=== PATIENT | male | born 1965 | race Caucasian/White ===

== ENCOUNTER 2018-08-08 15:48 | Emergency (ER) | payer MEDICARE, OTHER ==
[~2018-08-08] VITALS: Ht 185.4 cm; Wt 100.0 kg
[~2018-08-08 15:48] MED LIST: ATOR80TA PO; CLON-527 PO; CLON-529 PO; DULO-31 PO; GABA-532 PO; METF500T PO; azmacort INH
[2018-08-08 16:04] LABS: BASOPHILS # (AUTO) 0.1 X10'3 (0-0.2); BASOPHILS % (AUTO) 1.2 % (0-1); EOSINOPHILS # (AUTO) 0.1 X10'3 (0-0.9); EOSINOPHILS % (AUTO) 1.2 % (0-6); HEMATOCRIT 41.8 % (42.0-52.0); HEMOGLOBIN 14.1 g/dl (14.0-17.9); LYMPHOCYTES # (AUTO) 2.1 X10'3 (1.1-4.8); LYMPHOCYTES % (AUTO) 27.1 % (21-51); MEAN CORPUSCULAR HEMOGLOBIN 30.6 PG (27.0-31.0); MEAN CORPUSCULAR HGB CONC 33.8 % (33.0-36.5); MEAN CORPUSCULAR VOLUME 90.4 FL (78-98); MEAN PLATELET VOLUME 9.2 FL (7.4-10.4); MONOCYTES # (AUTO) 0.3 X10'3 (0-0.9); MONOCYTES % (AUTO) 3.8 % (2-12); NEUTROPHILS # (AUTO) 5.1 X10'3 (1.8-7.7); NEUTROPHILS % (AUTO) 66.7 % (42-75); PLATELET COUNT 283 X10'3 (140-440); RED BLOOD COUNT 4.62 X10'6 (4.70-6.10); RED CELL DISTRIBUTION WIDTH 13.8 % (11.5-14.5); WHITE BLOOD COUNT 7.6 X10'3 (4.5-11.0)
[2018-08-08 16:17] LABS: ALANINE AMINOTRANSFERASE 25 U/L (12-78); ALBUMIN/GLOBULIN RATIO 0.9 (1.1-1.5); ALKALINE PHOSPHATASE 110 IU/L (46-116); ANION GAP 11 (8-16); ASPARTATE AMINO TRANSFERASE 17 U/L (10-37); BILIRUBIN,TOTAL 0.2 MG/DL (0.1-1.0); BLOOD UREA NITROGEN 11 MG/DL (7-18); BUN/CREATININE RATIO 9.3 (5.4-32.0); CALCIUM 8.2 MG/DL (8.5-10.1); CHLORIDE 105 MMOL/L (99-107); CREATININE 1.18 MG/DL (0.60-1.10); ETHANOL 0.241 GM/DL (0.0-0.010); GLUCOSE 103 MG/DL (70-104); POTASSIUM 3.5 MMOL/L (3.5-5.1); SODIUM 140 MMOL/L (135-145); TOTAL CARBON DIOXIDE 23.6 MMOL/L (24-32); TOTAL PROTEIN 6.3 G/DL (6.4-8.2); eGFR 64 ML/MIN
[2018-08-08 16:18] LABS: INR 0.9 INR; PARTIAL THROMBOPLASTIN TIME 25 SECONDS (22-32); PROTHROMBIN TIME 9.7 SECONDS (9.0-12.0)
[2018-08-08 16:54] LABS: CLARITY,URINE CLEAR (Clear); COLOR,URINE YELLOW (Yellow); GLUCOSE, URINE NEGATIVE (Neg); KETONES,URINE NEGATIVE (Neg); LEUKOCYTE ESTERASE ,URINE NEGATIVE (Neg); NITRITES, URINE NEGATIVE (Neg); OCCULT BLOOD,URINE NEGATIVE (Neg); PROTEIN,URINE NEGATIVE (Neg); UROBILINOGEN,URINE 0.2 E.U/dL (0.2-1.0)
[2018-08-08 16:55] LABS: UA COLLECTION TYPE NON-SPECIFIED
[2018-08-08 17:06] LABS: URINE AMPHETAMINE SCREEN POSITIVE (Neg); URINE BARBITUATE SCREEN NEGATIVE (Neg); URINE BENZODIAZEPINES SCREEN POSITIVE (Neg); URINE CANNABINOID SCREEN NEGATIVE (Neg); URINE COCAINE SCREEN NEGATIVE (Neg); URINE METHADONE SCREEN NEGATIVE (Neg); URINE OPIATE SCREEN NEGATIVE (Neg); URINE PHENCYCLIDINE SCREEN NEGATIVE (Neg)
[2018-08-08] MEDS ORDERED: normal saline 1000ML IV soln IVB ONE (17:20)
[2018-08-08 20:22] VITALS: BP 92/52
== END 2018-08-08 21:33 | disposition home or self-care (01) ==
LOC: ER 15:49 → ED HOLD 16:47 → UNDOADMOB 16:47 → ER 21:33
DX: F10.129 Alcohol abuse with intoxication, unspecified (principal); E78.00 Pure hypercholesterolemia, unspecified; I10 Essential (primary) hypertension; J44.9 Chronic obstructive pulmonary disease, unspecified; E11.9 Type 2 diabetes mellitus without complications; G89.29 Other chronic pain; Y90.9 Presence of alcohol in blood, level not specified; Z79.84 Long term (current) use of oral hypoglycemic drugs; Z79.899 Other long term (current) drug therapy
CPT/HCPCS: 36415; 70450; 71045; 80053; 80305; 80320; 81003; 85025; 85610; 85730; 93005; 96360; 99285; A4353; J7030

== ENCOUNTER 2018-08-25 11:42 | Emergency (ER) | payer MEDICARE, OTHER ==
[~2018-08-25] VITALS: Ht 175.3 cm; Wt 100.0 kg
[2018-08-25 11:45] VITALS: BP 115/74
== END 2018-08-25 12:59 | disposition left against medical advice (07) ==
LOC: ER 11:43
DX: F10.129 Alcohol abuse with intoxication, unspecified (principal); Z53.21 Procedure and treatment not carried out due to patient leaving prior to being seen by health care provider; Y90.9 Presence of alcohol in blood, level not specified

== ENCOUNTER 2025-06-11 15:54 | Emergency (ER) | payer OTHER, BC ==
[~2025-06-11] VITALS: Ht 175.3 cm; Wt 127.1 kg
[~2025-06-11 15:54] MED LIST changes: +ATOR-429 PO; -ATOR80TA PO
--- NOTE | 2025-06-11 16:07 | ELECTROCARDIOGRAPH REPORT ---
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 Brian Bansal Measurements Intervals [place] Rate: 110 P: 66 PA: 189 QRS: 51 QRSD: 124 T: 19 QT: 329 QTc: 446 Interpretive Statements Sinus tachycardia Right bundle branch block Electronically Signed On 06-11-2025 19:43:[address] Brian Bansal Please click the below link to view image of tracing.
--- NOTE | 2025-06-11 16:26 | RADIOLOGY REPORT ---
CHEST RADIOGRAPH Indication: CP Technique: Single frontal view of the chest was obtained Comparison: None FINDINGS: Lines and Tubes: None Lungs: No focal consolidation. Pleura: No effusion. No pneumothorax. Cardiomediastinal contours: Unremarkable Bones: No acute osseous abnormality. IMPRESSION: No acute cardiopulmonary disease.
[2025-06-11 16:37] LABS: MEAN PLATELET VOLUME 9.8 FL (7.4-10.4); RED CELL DISTRIBUTION WIDTH 14.4 % (11.5-14.5)
[2025-06-11 16:55] LABS: CREATININE 1.00 MG/DL (0.60-1.10); PRO BRAIN NATRIURETIC PEPTIDE 89 PG/ML (0-125); TOTAL CARBON DIOXIDE 29.1 MMOL/L (24-32); eCRCL 77 ML/MIN; eGFR 76 ML/MIN
--- NOTE | 2025-06-11 23:41 | Physician Documentation ---
History of Present Illness ~ Chief Complaint: Extremity Swelling Stated Complaint: SWELLING IN LEGS AND HANDS Time Seen by MD: 23:36 OK to notify your PCP?: Yes [facility] Doctor: [facility] Source: patient, RN/MD, RN notes reviewed Mode of Arrival: POV Exam Limitations: no limitations, other HPI 60 year old male seen in bed one presents to the emergency department for complaints of swelling that has been present for a month. Patient states that both of his legs are swelling and are causing him pain. He states he is immobile. Patient states the only mediation he takes is clonidine which he takes as needed. 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 Tetanus witin 5 years: No Medication Reconciliation Allergies: Coded Allergies: No Known Allergies (Unverified , 06/11/25) Scheduled Atorvastatin Calcium* (Lipitor*), 40 MG PO HS, (Reported) Clonazepam* (Klonopin*), 1 MG PO QID, (Reported) Duloxetine Hcl* (Cymbalta*), 60 MG PO DAILY, (Reported) Gabapentin (Gabapentin), 3 CAP PO TID Metformin Hcl* (Glucophage*), 1 TAB PO DAILY, (Reported) [azmacort], 2 PUFFS INH DAILY, (Reported) Scheduled PRN Clonidine Hcl* (Catapres*), 0.1 MG PO TID PRN for anxiety Past Medical History Past Medical History: High Cholesterol, Hypertension, COPD, Diabetes, Chronic Pain, Chronic Back Pain, Anxiety, Depression Past Surgical History: no surgical history Alcohol Use: None Lives with: Family Lives In: Home Occupation: disabled Review of Systems All Other Systems at this time: Reviewed and Negative ROS As stated above in the HPI, otherwise all systems are reviewed and negative. Physical Exam Vital Signs: RN Vital Signs have been reviewed: Yes, Temperature: 97.8, Source: Temporal, Heart Rate: 91, Respiratory Rate: 18, BP: 130/94, Pulse Oximetry: 99, Weight: 127.100 Pulse Oximetry Reflects: adequate oxygenation Physical Exam General: The patient is well developed, well nourished, nontoxic appearing and is in no acute distress. Skin: [place], warm and dry with no rashes. HEENT: Head was normocephalic and atraumatic. Eyes - pupils equal, round, reactive to light and accommodation. Extraocular movements were intact. Conjunctivae were nonicteric. Ears - bilateral tympanic membranes were normal. The mouth and oropharynx were clear with moist mucous membranes. There were no pharyngeal exudates or erythema. Neck: Supple and nontender. There was no jugular venous distention, lymphadenopathy, thyromegaly or masses. Chest: Clear to auscultation bilaterally without wheezes, rales or rhonchi. No accessory muscle use. No dullness to percussion. Heart: Rate regular and rhythmic. S1, S2. No murmurs. Palpation of the chest wall was normal. No rubs or thrills. Abdomen: Soft, nontender and nondistended. Positive bowel sounds. No guarding or rebound. No hepatosplenomegaly or palpable masses. Extremities: Dependent edema. The patient moves all extremities. Pulses were equal and symmetric. Neurologic: Cranial nerves II-XII were intact. Sensation was intact to light touch throughout. Motor strength was 5/5 in all four extremities. Deep tendon reflexes were intact in both upper and lower extremities. Psychologic: The patient was oriented to person, place and time. The patient demonstrated appropriate judgement and insight. Progress Results/Orders Results/Orders Vital Signs 06/11/25 06/11/25 06/11/25 06/11/25 16:01 18:46 21:47 22:48 Temp 97.8 Pulse 111 112 88 91 Resp 18 17 15 18 B/P (MAP) 157/108 137/96 (110) 130/94 (106) Pulse Ox 97 96 99 99 Laboratory Tests Test 06/11/25 16:09 06/11/25 17:54 06/11/25 18:49 White Blood Count 7.3 Red Blood Count 4.53 L Hemoglobin 13.7 L Hematocrit 40.5 L Mean Corpuscular Volume 89.6 Mean Corpuscular Hemoglobin 30.2 Mean Corpuscular Hemoglobin Concent 33.7 Red Cell Distribution Width 14.4 Platelet Count 239 Mean Platelet Volume 9.8 Neutrophils (%) (Auto) 66.0 Lymphocytes (%) (Auto) 27.2 Monocytes (%) (Auto) 4.5 Eosinophils (%) (Auto) 1.3 Basophils (%) (Auto) 1.0 Neutrophils # (Auto) 4.8 Lymphocytes # (Auto) 2.0 Monocytes # (Auto) 0.3 Eosinophils # (Auto) 0.1 Basophils # (Auto) 0.1 CBC Comment Sodium Level 142 Potassium Level 4.2 Chloride Level 106 Carbon Dioxide Level 29.1 Anion Gap 7 L Blood Urea Nitrogen 17 Creatinine 1.00 Estimated GFR/1.73 m2 76 BUN/Creatinine Ratio 17.0 Glucose Level 140 H Calcium Level 9.0 Troponin I High Sensitivity 6 7 8 Pro-B-Type Natriuretic Peptide 89 Albumin 3.5 Chemistry Comments Troponin I High Sens Percent Delta 16 14 Troponin I Hi Sens Absolute Change 1 1 EKG/XRAY/CT/US/VASC/MRI EKG : Additional Comment [facility] Test Date: 2025-06-11 Test Time: 16:05:48 Pat Name: BOLIVAR LOCKETT Department: [facility]- Patient ID: [facility]-[id number] 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 Marisela Bansal Measurements Intervals [place] Rate: 110 P: 66 DC: 189 QRS: 51 QRSD: 124 T: 19 QT: 329 QTc: 446 Interpretive Statements Sinus tachycardia Right bundle branch block Electronically Signed On 06-11-2025 19:43:[address] Marisela Bansal Please click the below link to view image of tracing. EKG Date and Time:06/11/251604 Electronically Signed by: MARISELA BANSAL MD Date and Time: 06/11/251942 NO PRIMARY CARE PROVIDER~ cc: ~ Chest X-Ray : Additional Comments CHEST RADIOGRAPH Indication: CP Technique: Single frontal view of the chest was obtained Comparison: None FINDINGS: Lines and Tubes: None Lungs: No focal consolidation. Pleura: No effusion. No pneumothorax. Cardiomediastinal contours: Unremarkable Bones: No acute osseous abnormality. IMPRESSION: No acute cardiopulmonary disease. 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 Referrals: NO PRIMARY CARE PROVIDER (PCP) OLGA NEELY MD Education Educated: Patient, Family Educated regarding: diagnosis, treatment, prognosis, need for follow up Signature Scribe Signature: Scribed for Marisela Bansal MD by Anel Guzmán . 06/11/25 23:53 Attestation: The note accurately reflects work and decisions made by me.Marisela Bansal MD 06/11/25 23:40 MARISELA BANSAL MD Jun 11, 2025 23:41 ANEL REILLY Jun 11, 2025 23:53
[2025-06-11] MEDS ORDERED: POTA-188 PO (23:52)
[2025-06-11] MEDS ORDERED: LISI2.5T89 PO (23:52)
[2025-06-11] MEDS ORDERED: HYDR12.55 PO (23:52)
[2025-06-12 01:13] VITALS: BP 161/105; PULSE 89; RESP 18; TEMP 97.8; O2SAT 100
== END 2025-06-12 01:19 | disposition home or self-care (01) ==
LOC: ER 15:55
DX: R60.0 Localized edema (principal); E78.00 Pure hypercholesterolemia, unspecified; E11.9 Type 2 diabetes mellitus without complications; F32.A Depression, unspecified; I10 Essential (primary) hypertension; J44.9 Chronic obstructive pulmonary disease, unspecified; Z79.899 Other long term (current) drug therapy
CPT/HCPCS: 36415; 71045; 80048; 83880; 84484; 85025; 93005; 99285